=== PATIENT | female | born 1970 | race Caucasian/White ===

== ENCOUNTER → 2017-01-26 | Outpatient (CLI) | payer OTHER, MEDICARE ==
[~2017-01-26] MED LIST: ADULT ONE DAI200 MCG PO; BAYER CHILD81 MG PO; IMDUR30 MG PO; LIPITOR20 M1 PO; NAPROSYN500 MG PO; NASONEX NASAL S17 GM NOSE; PRILOSEC20 MG PO; SINGULAIR10 MG PO; SYMBICORT 16010.2 GM INH; TOPROL XL25 MG PO; XOPENEX HF45 MCG/INH INH; ZYRTEC10 MG PO
== END | disposition disaster alternative care site (69) ==
LOC: GRAD 12:52
DX: R07.9 Chest pain, unspecified (principal); R79.1 Abnormal coagulation profile; K76.0 Fatty (change of) liver, not elsewhere classified; K44.9 Diaphragmatic hernia without obstruction or gangrene

== ENCOUNTER → 2017-02-02 | Outpatient (CLI) | payer OTHER, MEDICARE ==
--- NOTE | ~2017-02-02 | ESTC ---
Cardiac Perfusion Imaging Demographics Patient Name ELADIO MUNOZ Gender Female K Patient Number [id number] Race Visit Number [id number] Ethnicity Corporate ID Room Number Accession Number [id number] Height 63 inches Date of 1970 Weight 220 pounds MD Ponce Weinstein Date of study 02/02/2017 Physician Pina Supervising /ANKUSH [employer] Technologist Stacia Heller Ordering Physician Guy Heller generator technician Stress ECG Reading Guy Nurse Fadi Dubose Physician Pina Clinton Procedure Procedure Type: Nuclear Stress Test:Pharmacological, Lexiscan Procedure Start time: 02/02/2017 09:00 Indications: Angina. Risk Factors The patient risk factors include:treated hypercholesterolemia and treated hypertension. Conclusions Summary Stress SPECT images reveal a medium to large area of moderate decreased isotope uptake involving the anterior wall of the left ventricle. Rest SPECT images reveal a small size moderate perfusion defect in the apex. Gated SPECT imaging reveals normal left ventricular wall motion. The left ventricular ejection fraction was calculated to be 61 %. Impression ECG portion of the stress test is clinically negative for ischemia by diagnostic criteria. Myocardial perfusion imaging is moderately abnormal. Images reveal a medium to large sized area of moderate anterior wall ischemia. Gated wall motion is normal with LVEF 61%. This is a intermediate risk stress test. Stress Protocols Resting ECG Sinus rhythm Pre-stress physical exam: Patient assessed by Dr Weinstein prior to testing. Predicted HR: 172 bpm ECG Findings No ECG changes suggestive of ischemia. Arrhythmias Occasional PVCs Symptoms Shortness of breath. Nausea. Stress Interpretation Appropriate hemodynamic response to Lexiscan. No significant ST-T wave changes with Lexiscan. ECG portion is negative for ischemia by diagnostic criteria. Imaging Results Summed scores - Summed stress score: 13 - Summed rest score: 9 - Summed difference score: 4 Stress ejection Ejection fraction:61 % EDV :108 ml ESV :42 ml Stroke volume :66 ml LV mass :126 gr Imaging Protocols Rest Stress Isotope:Tc99m Sestamibi IV Isotope: Tc99m Sestamibi IV Isotope dose:14.3 mCi Isotope dose:44.6 mCi Date:02/02/2017 07:35 Date:02/02/2017 09:28 Technique: SPECT Technique: Gated Supine SPECT Supine Scan Time:45-60 minutes post Scan Time:45-60 minutes post injection injection Procedure Medications - Regadenoson (Lexiscan) 0.4 mg IV over 10-15 sec. I.V. 0.4 mg. Medications administered per verbal order and read back to physician prior to administration. Medical History Admission Data Admission date: 02/02/2017 Admission Time: 07:18 Hospital Status: Outpatient. Signatures dtt: PINA WEINSTEIN dtd: 02/02/17 0900 Physician Self Edit
== END | disposition disaster alternative care site (69) ==
LOC: GRAD 07:18
DX: R07.9 Chest pain, unspecified (principal); E78.00 Pure hypercholesterolemia, unspecified; I10 Essential (primary) hypertension
CPT/HCPCS: A9500; J2785

== ENCOUNTER 2017-02-06 16:46 | Emergency (ER) | payer OTHER, MEDICARE ==
--- NOTE | ~2017-02-06 | ER ---
PATIENT'S NAME: ALEXANDER HENDRICKS [facility] AGE: 46 Y [address] ROOM: [place] [address] LOCATION: ED ADMIT DATE: 02/06/2017 ER/Outpatient Report DISCHARGE DATE: 02/06/2017 FAMILY PHYSICIAN: Physician, Unknown ATTENDING PHYSICIAN: Lea Marlow Time of Arrival: 1648 hours. Time of Evaluation: 1648 hours. CHIEF COMPLAINT: Shortness of breath. HISTORY OF PRESENT ILLNESS: The patient states during the night, she was having difficulty breathing. She has felt a tight band around her lower chest, upper abdomen area. States she had to sleep in the recliner to get comfortable. She did try use her inhaler to see if it would give her some relief thinking it may be related to her asthma, it did not help. She states that with her asthma, she normally feels tightness up in the throat area. Last night, she was nauseated. She did not vomit. She states that she had a stress test last week, which she flunked. She is scheduled to have a heart catheterization done on here at [facility]. She reports she has been having chest pain off and on since December. She has had some problems with swelling of her hands and feet. 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 When she was talking to the nurse and explaining symptoms that she had, they encouraged her to come in and be evaluated. She denies having any pain or discomfort at this time. Has not had any respiratory distress. PAST MEDICAL HISTORY: Asthma, headache, legally blind. She had workup for possible TIA in 2007, which included a heart catheterization at that time, it did show some anterior wall ischemia. PAST SURGICAL HISTORY: Hysterectomy, right eye surgery, and cardiac cath in 2007. SOCIAL HISTORY: She denies use of tobacco, drugs, or alcohol. Reports Dr. Ramos is her primary provider. REVIEW OF SYSTEMS: Negative other than those mentioned in the HPI. PHYSICAL EXAMINATION: PATIENT'S NAME: ALEXANDER HENDRICKS [facility] AGE: 46 Y [address] ROOM: [place] [address] LOCATION: ED ADMIT DATE: 02/06/2017 ER/Outpatient Report DISCHARGE DATE: 02/06/2017 FAMILY PHYSICIAN: Physician, Unknown ATTENDING PHYSICIAN: Lea Marlow VITAL SIGNS: She weighs 102 kg, blood pressure is 140/73, pulse of 82, respirations 20, temperature of 98.9 tympanic, O2 saturation is 96% on room air. GENERAL: She is awake, alert, and oriented x4. SKIN: [place], warm, and dry. RESPIRATIONS: Even and nonlabored. Lung sounds are clear throughout. HEART: Regular rate and rhythm. ABDOMEN: Soft, nondistended. Bowel sounds are present. LABORATORY DATA AND X-RAYS: EKG was completed. It shows a sinus rhythm. CBC is within normal limits. Chem panel is within normal limits. Her magnesium is 2.3. CPK is 139, CK-MB is 1.2, troponin is less than 0.040. D- dimer was negative. ProBNP was 364. Chest x-ray was completed. No acute abnormality seen. Her vital signs remained stable. Continued to be in a sinus rhythm. Did do the 2-hour EKG. It is unchanged from previous. Cardiac enzymes shows CPK 125, CK-MB is 0.9, and troponin of less than 0.040. She denies having any pain or discomfort. IMPRESSION: Shortness of breath with chest wall tightness. PLAN: Home, rest. Follow up with her primary provider if symptoms persist or worsen. Do keep her scheduled appointment on . She verbalized understanding. EMILY TORRES APRN FOR MD VONNIE MORALES/helen /[id number] d: 02/07/17 0417 t: 02/08/172042, OUTPATIENT REPORT
[2017-02-06 17:36] LABS: BASOPHIL % 0.4 %; EOSINOPHIL # 0.2 K/uL (0.0-0.5); EOSINOPHIL % 2.4 %; HEMATOCRIT 35.5 % (33.0-46.0); HEMOGLOBIN 12.4 g/dL (10.0-15.0); IMMATURE GRANULOCYTE % 0.3 %; LYMPHOCYTE # 2.7 K/uL (0.8-4.0); LYMPHOCYTE % 38.5 %; MCH 32.5 pg (27.0-34.0); MCHC 34.9 gm/dL (32.0-36.5); MCV 92.9 fl (83.0-98.0); MONOCYTE # 0.6 K/uL (0.0-1.0); MONOCYTE % 7.9 %; MPV 10.2 fl (9.4-12.4); NEUTROPHIL # (ANC) 3.6 K/uL (1.8-7.8); NEUTROPHIL % 50.5 %; NRBC % 0 /100WBC (0-0.00); PLATELET COUNT 166 K/uL (150-450); RBC 3.82 M/uL (3.50-5.50); RDW-CV 11.9 % (11.9-14.6); WBC 7.1 K/uL (4.0-11.0)
[2017-02-06 17:43] LABS: INR - (THERAPEUTIC) 0.96 (0.92-1.07); PROTIME 10.1 SECONDS (9.8-11.4); PTT 24 SECONDS (25-32)
[2017-02-06 17:55] LABS: ALBUMIN 3.6 gm/dL (3.5-5.0); ALK PHOS 53 IU/L (33-138); ALT 35 IU/L (12-78); ANION GAP 11.8 (10.0-19.0); AST 25 IU/L (10-40); BLOOD UREA NITROGEN 12 mg/dL (6-24); CALCIUM 8.2 mg/dL (8.5-10.5); CHLORIDE 112 mMol/L (96-110); CO2 23 mMol/L (22-32); CPK 139 IU/L (21-215); CREATININE 0.7 mg/dL (0.5-1.1); MAGNESIUM 2.3 mg/dL (1.8-2.6); POTASSIUM 3.8 mMol/L (3.7-5.1); SODIUM 143 mMol/L (135-145); TOTAL BILIRUBIN 0.3 mg/dL (0.0-1.5)
[2017-02-06 19:55] LABS: CPK 125 IU/L (21-215)
== END 2017-02-06 20:10 | disposition disaster alternative care site (69) ==
LOC: GMED 16:46
PROVIDERS: Nurse Practitioner Family
DX: R06.02 Shortness of breath (principal); R07.89 Other chest pain; J45.909 Unspecified asthma, uncomplicated; Z95.828 Presence of other vascular implants and grafts; Z88.5 Allergy status to narcotic agent; Z88.8 Allergy status to other drugs, medicaments and biological substances; Z79.899 Other long term (current) drug therapy

== ENCOUNTER 2017-02-09 05:55 | Outpatient (CLI) | payer OTHER, MEDICARE ==
[~2017-02-09] VITALS: Ht 160 cm; Wt 99.2 kg
--- NOTE | ~2017-02-09 | CATH ---
Cardiac Diagnostic Report Demographics Patient Name ELADIO Gender Female ALEXANDER Cornell Date of 1970 Age 46 year(s) Patient Number [id number] Date of Study 02/09/2017 Visit Number [id number] Room Number Corporate ID Ht Wt Accession Number [id number] BMI Referring Yerra Primary Physician Physician Pina Performing Yerra Secondary Physician Physician Pina Diagnostic Yerra Assisting Physician Physician Pina Interventional Physician Driller Helper Physician Findings and Conclusions Diagnostic Findings and Conclusion Normal coronaries; Right dominant circulation EDP 10 Diagnostic Recommendations follow up for non-cardiac etiologies of chest pain Procedure Description The patient was brought to the diagnostic cardiac catheterization-EP laboratory in the fasting, non-sedated state. Informed consent was obtained in the written and verbal form after the risks and benefits were explained. The patient had no further questions and agreed to proceed. The planned puncture-incision site(s) were shaved and prepped with ChloraPrep and draped in the usual sterile manner. Conscious sedation, supplemental oxygen, and pain control medications were delivered by a registered nurse under physician guidance. Surface ECG rhythm, blood pressure measurement, and pulse oximetry were monitored throughout the procedure. Arterial access. The access site on right wrist was infiltrated with lidocaine. The vessel was entered with the Seldinger technique. A sheath was advanced into the vessel and used for catheter placement. Selective left coronary angiography. A catheter was advanced into the left coronary vessel ostium under Fluoroscopic guidance. Contrast was injected by hand. Images were obtained in multiple projections. Selective right coronary angiography. A catheter was advanced into the right coronary vessel ostium under fluoroscopic guidance. Contrast was injected by hand. Images were obtained in multiple projections. Left heart catheterization. A catheter was advanced across the aortic valve to the left ventricle under fluoroscopic guidance. Resting hemodynamics were obtained. Arterial artery hemostasis was achieved. The patient was transferred to a regular nursing floor via cart accompanied by a nurse. The patient left the laboratory in stable condition. Procedure Procedure Type Diagnostic procedure:Angiography:, Coronary Angios w/[facility] Indications: Shortness of breath. The procedure was explained in detail to the patient. Risks, complications and alternative treatments were reviewed. Written consent was obtained. Medications Reviewed with Patient prior to Procedure. Angiographic Findings Dominance: Cardiac Arteries and Lesion Findings LMCA: Normal (0% Stenosis). LAD: Normal (0% Stenosis). LCx: Normal (0% Stenosis). RCA: Normal (0% Stenosis). Procedure Data Procedure Date Date: 02/09/2017Start: 08:16 AMEnd: 08:54 AM Entry Locations - Retrograde Percutaneous access was performed through the Right Radial artery (Primary location). A 6 Fr sheath was inserted. Hemostasis was successfully obtained using a TR band. Closure Comments: 15 cc air in band by Angel. Procedure Medications Order and Administration + + + +-------+ !Time !Medication !Dosage !Route ! + + + +-------+ !02/09/2017 08:12 AM !Versed !0.5 mg !I.V. ! + + + +-------+ !02/09/2017 08:12 AM !Fentanyl !25 mcg !I.V. ! + + + +-------+ !02/09/2017 08:18 AM !Versed !0.5 mg !I.V. ! + + + +-------+ !02/09/2017 08:18 AM !Fentanyl !25 mcg !I.V. ! + + + +-------+ !02/09/2017 08:21 AM !Radial Verapamil !2.5 mg !I.A. ! + + + +-------+ !02/09/2017 08:21 AM !Radial Nitroglycerin !200 mcg ! ! + + + +-------+ !02/09/2017 08:22 AM !Heparin (ACC_3) !4000 units ! ! + + + +-------+ Devices Used - A5 Fr. BS JR 4 Diag. Catheterwas used for:Right coronary angiography. - A5 Fr. BS JL 3.5 Diag. Catheterwas used for:Left coronary angiography. Contrast Material - Isovue 99991 ml Fluoroscopy Time: Diagnostic: 7:12 minutes. Total: 7:12 minutes. Fluoroscopy Dose: Diagnostic: 1034 mGy. Total: 1034 mGy. Estimated Blood Loss: 5 ml. Medical History Risk Factors The patient risk factors include:cerebrovascular disease, hypercholesterolemia, hypertension, family history of premature CAD, chronic lung disease and dyslipidemia. Admission Data Admit Source: Other Hemodynamics Condition: Rest Heart Rate: 73 bpm Pressures (mmHg) +-----+ + !Site !Pressure ! +-----+ + !LV !121/7 ,11 ! +-----+ + !LV !116/7 ,9 ! +-----+ + !AO !125/84 (103) ! +-----+ + Signatures dtt: PINA WEINSTEIN dtd: 02/09/17 0816 Physician Self Edit
[2017-02-09 06:40] LABS: BASOPHIL % 0.3 %; EOSINOPHIL # 0.2 K/uL (0.0-0.5); EOSINOPHIL % 1.7 %; HEMATOCRIT 40.2 % (33.0-46.0); HEMOGLOBIN 14.2 g/dL (10.0-15.0); IMMATURE GRANULOCYTE % 0.1 %; LYMPHOCYTE # 3.4 K/uL (0.8-4.0); LYMPHOCYTE % 38.9 %; MCH 32.6 pg (27.0-34.0); MCHC 35.3 gm/dL (32.0-36.5); MCV 92.2 fl (83.0-98.0); MONOCYTE # 0.8 K/uL (0.0-1.0); MPV 9.9 fl (9.4-12.4); NEUTROPHIL # (ANC) 4.4 K/uL (1.8-7.8); NRBC % 0 /100WBC (0-0.00); PLATELET COUNT 177 K/uL (150-450); RBC 4.36 M/uL (3.50-5.50); RDW-CV 11.9 % (11.9-14.6); WBC 8.9 K/uL (4.0-11.0)
[2017-02-09 06:50] LABS: INR - (THERAPEUTIC) 1.01 (0.92-1.07); PROTIME 10.6 SECONDS (9.8-11.4); PTT 25 SECONDS (25-32)
[2017-02-09 07:00] LABS: ALBUMIN 3.8 gm/dL (3.5-5.0); ANION GAP 11.7 (10.0-19.0); CALCIUM 8.9 mg/dL (8.5-10.5); CREATININE 0.8 mg/dL (0.5-1.1); POTASSIUM 3.7 mMol/L (3.7-5.1); TOTAL PROTEIN 7.5 g/dL (6.0-8.4)
[2017-02-09 07:02] LABS: TOTAL BILIRUBIN 0.7 mg/dL (0.0-1.5)
== END 2017-02-09 12:13 | disposition disaster alternative care site (69) ==
LOC: GPOC 05:55 → GPCU 05:55 → GPOC 06:00
PROVIDERS: Internal Medicine Interventional Cardiology
PROC: 4A023N7 Measurement of Cardiac Sampling and Pressure, Left Heart, Percutaneous Approach (ICD-10-PCS; principal; 2017-02-09)
DX: I20.9 Angina pectoris, unspecified (principal); R94.39 Abnormal result of other cardiovascular function study; R07.9 Chest pain, unspecified; Z01.818 Encounter for other preprocedural examination; Z79.82 Long term (current) use of aspirin; Z88.5 Allergy status to narcotic agent; Z88.8 Allergy status to other drugs, medicaments and biological substances
CPT/HCPCS: J1644; J2001; J2250; J3010; J7030

== ENCOUNTER → 2017-02-16 | Outpatient (CLI) | payer OTHER, MEDICARE ==
[2017-02-16 14:53] LABS: ANION GAP 8.8 (10.0-19.0); CALCIUM 8.6 mg/dL (8.5-10.5); CREATININE 0.9 mg/dL (0.5-1.1); POTASSIUM 3.8 mMol/L (3.7-5.1)
== END ==
LOC: LNHI 14:40
PROVIDERS: Internal Medicine Interventional Cardiology
DX: R07.9 Chest pain, unspecified (principal)